=== PATIENT | male | born 1960 | race American Indian/Alaskan Native ===

== ENCOUNTER 2019-05-16 11:17 | Outpatient (CLI) | payer BC ==
[2019-05-16 11:54] LABS: Basophils # (Auto) 0.1 K/mm3 (0.0-0.1); Eosinophils # (Auto) 0.4 K/mm3 (0.0-0.4); Eosinophils % (Auto) 4.7 % (0.0-4.3); Hematocrit 42.1 % (35.5-45.6); Lymphocytes # (Auto) 3.9 K/mm3 (1.2-5.4); Lymphocytes % (Auto) 44.7 % (13.4-35.0); Mean Corpuscular Volume 88 fl (84-94); Monocytes # (Auto) 0.7 K/mm3 (0.0-0.8); Monocytes % (Auto) 7.7 % (0.0-7.3); Platelet Count 302 K/mm3 (140-440); Red Blood Count 4.79 M/mm3 (3.65-5.03)
[2019-05-16 12:07] LABS: Basophils % (Auto) 1.5 % (0.0-1.8)
[2019-05-16 12:08] LABS: Hemoglobin 14.3 gm/dl (11.8-15.2); Mean Corpuscular HGB Conc 34 % (32-34); Red Cell Distribution Width 13.7 % (13.2-15.2)
--- NOTE | 2019-05-16 12:14 | XRay Report ---
CHEST 1 VIEW INDICATION: HISTORY OF SMOKING 10-25 PACK YEARS. COMPARISON: None. FINDINGS: Heart: Within normal limits. Lungs: No acute air space or interstitial disease. Pleura: No significant pleural effusion. No pneumothorax. Additional findings: None. IMPRESSION: 1. No acute findings. Signer Name: Gabriel Yatse MD Signed: 05/16/2019 12:09 PM Workstation Name: [id number]
[2019-05-16 12:23] LABS: Alanine Aminotransferase 18 units/L (7-56); Albumin 4.2 g/dL (3.9-5); BUN/Creatinine Ratio 18; Blood Urea Nitrogen 14 mg/dL (9-20); Calcium 9.2 mg/dL (8.4-10.2); Chol/HDL Ratio 5.05 %; HDL Cholesterol 36 mg/dL (40-59); Hemolysis Index 2; LDL Cholesterol,Direct 146 mg/dL (50-130)
== END 2019-05-16 11:18 | disposition home or self-care (01) ==
LOC: XRAY 11:17 → EDSEX 11:17 → XRAY 11:18
PROVIDERS: ATTEND Family Medicine
DX: Z12.5 Encounter for screening for malignant neoplasm of prostate (principal); R73.03 Prediabetes; I10 Essential (primary) hypertension; E78.00 Pure hypercholesterolemia, unspecified; N52.9 Male erectile dysfunction, unspecified; Z87.891 Personal history of nicotine dependence
CPT/HCPCS: 36415; 71045; 80053; 80061; 84153; 84443; 85025

== ENCOUNTER 2019-06-25 08:18 | Outpatient (CLI) | payer BC ==
--- NOTE | 2019-06-25 09:48 | Ultrasound Report ---
ULTRASOUND RENAL INDICATION / CLINICAL INFORMATION: R94.4. Abnormal results of kidney function test, hypertension COMPARISON: None available. FINDINGS: RIGHT KIDNEY: Length = 10.5 cm. [normal > 9 cm] - Parenchymal Thickness = 0.7 cm. [normal > 1.5 cm] - Echogenicity: Normal. - Hydronephrosis: None. - Cyst or mass: No significant abnormality. - Stones: None seen. LEFT KIDNEY: Length = 10.4 cm. [normal > 9 cm] - Parenchymal Thickness = 1.8 cm. [normal > 1.5 cm] - Echogenicity: Normal. - Hydronephrosis: None. - Cyst or mass: No significant abnormality. - Stones: None seen. URINARY BLADDER: Prevoid bladder volume measures 154 cc. Post void residual measures 3 cc. FREE FLUID: None. ADDITIONAL FINDINGS: None. IMPRESSION: Normal renal ultrasound. Post void residual measures 3 cc. Signer Name: Speedy Gardner Jr, MD Signed: 06/25/2019 9:44 AM Workstation Name: [id number]
[2019-06-25 09:50] LABS: Hematocrit 43.9 % (35.5-45.6); Mean Corpuscular HGB Conc 34 % (32-34); Mean Corpuscular Volume 88 fl (84-94); Platelet Count 266 K/mm3 (140-440); Red Blood Count 5.02 M/mm3 (3.65-5.03); Red Cell Distribution Width 13.9 % (13.2-15.2)
[2019-06-25 10:15] LABS: Alanine Aminotransferase 19 units/L (7-56); Albumin 4.3 g/dL (3.9-5); BUN/Creatinine Ratio 16; Blood Urea Nitrogen 13 mg/dL (9-20); Calcium 9.5 mg/dL (8.4-10.2); Hemolysis Index 1
[2019-06-25 11:25] LABS: Creatinine,Urine 127.3 mg/dL (0.1-20.0); Protein/Creatinine Ratio,Urine 0.06
[2019-06-30 13:08] LABS: ANA Screen, IFA Negative (Negative)
[2019-07-01 12:47] LABS: Myeloperoxidase Antibody <1.0 AI (<1.0)
== END 2019-06-25 08:19 | disposition home or self-care (01) ==
LOC: US 08:18
PROVIDERS: ATTEND Internal Medicine
DX: R94.4 Abnormal results of kidney function studies (principal); E78.5 Hyperlipidemia, unspecified; I10 Essential (primary) hypertension; R31.21 Asymptomatic microscopic hematuria; G47.37 Central sleep apnea in conditions classified elsewhere
CPT/HCPCS: 36415; 76770; 76857; 80053; 82570; 84156; 85027; 86021; 86038; 86706; 86803; 89050

== ENCOUNTER 2019-08-13 11:00 | Outpatient (CLI) | payer BC | END 2019-08-13 11:01 | disposition home or self-care (01) | LOC: SLR 11:00 | PROVIDERS: ATTEND Internal Medicine Critical Care Medicine | DX: G47.33 Obstructive sleep apnea (adult) (pediatric) (principal); R40.0 Somnolence; R06.83 Snoring; E66.9 Obesity, unspecified | CPT/HCPCS: 95810 ==

== ENCOUNTER 2019-09-11 11:00 | Outpatient (CLI) | payer BC | END 2019-09-11 11:01 | disposition home or self-care (01) | LOC: SLR 11:00 | PROVIDERS: ATTEND Internal Medicine Critical Care Medicine | DX: G47.33 Obstructive sleep apnea (adult) (pediatric) (principal) | CPT/HCPCS: 95811 ==

== ENCOUNTER 2020-01-17 14:54 | Outpatient (CLI) | payer BC ==
[2020-01-17 15:12] LABS: Basophils # (Auto) 0.1 K/mm3 (0.0-0.1); Eosinophils # (Auto) 0.3 K/mm3 (0.0-0.4); Eosinophils % (Auto) 3.7 % (0.0-4.3); Hematocrit 45.9 % (35.5-45.6); Hemoglobin 15.5 gm/dl (11.8-15.2); Lymphocytes # (Auto) 2.9 K/mm3 (1.2-5.4); Lymphocytes % (Auto) 36.3 % (13.4-35.0); Mean Corpuscular HGB Conc 34 % (32-34); Mean Corpuscular Volume 88 fl (84-94); Monocytes # (Auto) 0.7 K/mm3 (0.0-0.8); Monocytes % (Auto) 8.5 % (0.0-7.3); Platelet Count 292 K/mm3 (140-440); Red Blood Count 5.23 M/mm3 (3.65-5.03); Red Cell Distribution Width 14.3 % (13.2-15.2)
[2020-01-17 15:26] LABS: Alanine Aminotransferase 19 units/L (7-56); Albumin 4.2 g/dL (3.9-5); BUN/Creatinine Ratio 19; Blood Urea Nitrogen 15 mg/dL (9-20); Calcium 9.4 mg/dL (8.4-10.2); Hemolysis Index 66
[2020-01-17 16:11] LABS: Creatinine,Urine 88.7 mg/dL (0.1-20.0); Protein/Creatinine Ratio,Urine 0.07
== END 2020-01-17 14:55 | disposition home or self-care (01) ==
LOC: LAB 14:54
PROVIDERS: ATTEND Internal Medicine
DX: R94.4 Abnormal results of kidney function studies (principal)
CPT/HCPCS: 36415; 80053; 82570; 84156; 85025

== ENCOUNTER 2020-09-01 12:40 | Outpatient (CLI) | payer BC ==
[2020-09-01 14:28] LABS: Alanine Aminotransferase 15 units/L (7-56); BUN/Creatinine Ratio 18; Blood Urea Nitrogen 14 mg/dL (9-20); Calcium 9.2 mg/dL (8.4-10.2); Hemolysis Index 3
[2020-09-02 16:03] LABS: Chol/HDL Ratio 5.87 %; HDL Cholesterol 31 mg/dL (40-59); LDL Cholesterol,Direct 135 mg/dL (50-130)
== END 2020-09-01 12:41 | disposition home or self-care (01) ==
LOC: LAB 12:40
DX: I10 Essential (primary) hypertension (principal); E53.8 Deficiency of other specified B group vitamins; E78.00 Pure hypercholesterolemia, unspecified; R73.03 Prediabetes
CPT/HCPCS: 36415; 80053; 80061; 82607; 83036

== ENCOUNTER 2020-11-03 08:57 | Outpatient (CLI) | payer BC ==
[2020-11-03 09:53] LABS: Basophils # (Auto) 0.1 K/mm3 (0.0-0.1); Eosinophils # (Auto) 0.4 K/mm3 (0.0-0.4); Eosinophils % (Auto) 5.4 % (0.0-4.3); Hematocrit 41.1 % (35.5-45.6); Hemoglobin 14.1 gm/dl (11.8-15.2); Lymphocytes # (Auto) 3.6 K/mm3 (1.2-5.4); Lymphocytes % (Auto) 43.5 % (13.4-35.0); Mean Corpuscular HGB Conc 34 % (32-34); Mean Corpuscular Volume 89 fl (84-94); Monocytes # (Auto) 0.7 K/mm3 (0.0-0.8); Monocytes % (Auto) 8.1 % (0.0-7.3); Platelet Count 291 K/mm3 (140-440); Red Blood Count 4.61 M/mm3 (3.65-5.03); Red Cell Distribution Width 14.1 % (13.2-15.2)
[2020-11-05 15:44] LABS: Vitamin D, 25-OH, D2 18 ng/mL
== END 2020-11-03 08:58 | disposition home or self-care (01) ==
LOC: LAB 08:57
PROVIDERS: ATTEND Family Medicine
DX: R53.83 Other fatigue (principal)
CPT/HCPCS: 36415; 82306; 84443; 85025

== ENCOUNTER 2021-01-14 07:19 | Outpatient (CLI) | payer BC ==
[2021-01-14 07:43] LABS: Hemoglobin 14.2 gm/dl (11.8-15.2); Mean Corpuscular HGB Conc 35 % (32-34); Mean Corpuscular Volume 89 fl (84-94); Platelet Count 307 K/mm3 (140-440); Red Blood Count 4.63 M/mm3 (3.65-5.03); Red Cell Distribution Width 13.5 % (13.2-15.2)
[2021-01-14 08:01] LABS: Alanine Aminotransferase 21 units/L (7-56); BUN/Creatinine Ratio 16; Blood Urea Nitrogen 13 mg/dL (9-20); Calcium 9.1 mg/dL (8.4-10.2); Hemolysis Index 4
[2021-01-14 15:26] LABS: Creatinine,Urine 165.5 mg/dL (0.1-20.0); Protein/Creatinine Ratio,Urine 0.05
== END 2021-01-14 07:20 | disposition home or self-care (01) ==
LOC: LAB 07:19
PROVIDERS: ATTEND Internal Medicine
DX: E78.5 Hyperlipidemia, unspecified (principal); R94.4 Abnormal results of kidney function studies; I10 Essential (primary) hypertension; G47.37 Central sleep apnea in conditions classified elsewhere; R31.21 Asymptomatic microscopic hematuria
CPT/HCPCS: 36415; 80053; 82570; 84156; 85027

== ENCOUNTER 2021-04-24 10:05 | Outpatient (CLI) | payer BC ==
[2021-04-24 10:32] LABS: Basophils # (Auto) 0.1 K/mm3 (0.0-0.1); Basophils % (Auto) 1.1 % (0.0-1.8); Eosinophils # (Auto) 0.4 K/mm3 (0.0-0.4); Eosinophils % (Auto) 4.7 % (0.0-4.3); Hemoglobin 15.2 gm/dl (11.8-15.2); Lymphocytes # (Auto) 3.3 K/mm3 (1.2-5.4); Lymphocytes % (Auto) 38.3 % (13.4-35.0)
[2021-04-24 10:43] LABS: Creatinine,Urine 170.1 mg/dL (0.1-20.0); Protein/Creatinine Ratio,Urine 0.08
[2021-04-24 10:51] LABS: Albumin 4.6 g/dL (3.9-5); BUN/Creatinine Ratio 21; Blood Urea Nitrogen 17 mg/dL (9-20); Calcium 9.4 mg/dL (8.4-10.2); Hemolysis Index 1
[2021-04-24 11:12] LABS: Alanine Aminotransferase < 5 units/L (7-56)
[2021-04-24 11:18] LABS: Hematocrit 45.2 % (35.5-45.6); Mean Corpuscular HGB Conc 34 % (32-34); Mean Corpuscular Volume 89 fl (84-94); Platelet Count 305 K/mm3 (140-440); Red Blood Count 5.09 M/mm3 (3.65-5.03); Red Cell Distribution Width 14.3 % (13.2-15.2)
== END 2021-04-24 10:06 | disposition home or self-care (01) ==
LOC: LAB 10:05
PROVIDERS: ATTEND Internal Medicine
DX: E78.5 Hyperlipidemia, unspecified (principal); I10 Essential (primary) hypertension; R94.4 Abnormal results of kidney function studies; G47.37 Central sleep apnea in conditions classified elsewhere; R31.21 Asymptomatic microscopic hematuria
CPT/HCPCS: 36415; 80053; 82570; 84156; 85025

== ENCOUNTER 2021-08-10 10:24 | Outpatient (CLI) | payer BC ==
[2021-08-10 11:06] LABS: Bilirubin,Urine NEG (Negative); Blood,Urine SM (Negative); Color,Urine Yellow (Yellow); Mucus,Urine FEW /HPF; Protein,Urine <15 mg/dL mg/dL (Negative); Urobilinogen,Urine < 2.0 mg/dL (<2.0); WBC,Urine < 1.0 /HPF (0.0-6.0)
[2021-08-10 11:21] LABS: Basophils # (Auto) 0.1 K/mm3 (0.0-0.1); Basophils % (Auto) 1.2 % (0.0-1.8); Eosinophils # (Auto) 0.4 K/mm3 (0.0-0.4); Hematocrit 42.9 % (35.5-45.6); Hemoglobin 14.4 gm/dl (11.8-15.2); Lymphocytes # (Auto) 2.6 K/mm3 (1.2-5.4); Lymphocytes % (Auto) 35.5 % (13.4-35.0); Mean Corpuscular HGB Conc 33 % (32-34); Mean Corpuscular Volume 89 fl (84-94); Monocytes # (Auto) 0.7 K/mm3 (0.0-0.8); Platelet Count 285 K/mm3 (140-440); Red Blood Count 4.84 M/mm3 (3.65-5.03); Red Cell Distribution Width 14.1 % (13.2-15.2)
[2021-08-10 11:42] LABS: Alanine Aminotransferase 16 units/L (7-56); Albumin 4.2 g/dL (3.9-5); BUN/Creatinine Ratio 19; Blood Urea Nitrogen 15 mg/dL (9-20); Calcium 9.4 mg/dL (8.4-10.2); Chol/HDL Ratio 5.94 %; HDL Cholesterol 34 mg/dL (40-59); Hemolysis Index 14; LDL Cholesterol,Direct 155 mg/dL (50-130)
[2021-08-10 13:35] LABS: Creatinine,Urine 147.9 mg/dL (0.1-20.0)
[2021-08-10 13:41] LABS: Microalbumin/Creatinine Ratio 11.4 ug/mg
== END 2021-08-10 10:25 | disposition home or self-care (01) ==
LOC: LAB 10:24
DX: E78.2 Mixed hyperlipidemia (principal); R68.82 Decreased libido; I10 Essential (primary) hypertension; R73.02 Impaired glucose tolerance (oral)
CPT/HCPCS: 36415; 80053; 80061; 81001; 82043; 82550; 84146; 84402; 84439; 84443; 85025

== ENCOUNTER 2021-08-11 10:26 | Outpatient (CLI) | payer BC ==
--- NOTE | 2021-08-11 12:17 | Cat Scan Report ---
CT CHEST WITHOUT CONTRAST, LOW-DOSE SCREENING INDICATION / CLINICAL INFORMATION: LUNG CANCER SCREENING. TECHNIQUE Thin section axial imaging performed from the lung apices through the costophrenic sulci using low-do se technique. All CT scans at this location are performed using CT dose reduction for ALARA by means of automated exposure control. COMPARISON: Radiograph 05/16/2019. FINDINGS: No evidence of discrete pulmonary nodule or mass. Subtle areas of groundglass opacities are noted wit hin the lung bases bilaterally. The appearance may reflect some degree of infectious or inflammatory change. No focal consolidation. Mild paraseptal emphysematous change. Mildly enlarged mediastinal lymph nodes including a 1.6 x 1.1 cm right paratracheal lymph node (axial image 31 of 21. The heart is within the upper limits of normal in terms of size without pericardial effusion. No evid ence of axillary lymphadenopathy. Limited evaluation of the upper abdomen is unremarkable. Bones show no evidence of acute fracture or aggressive osseous destructive lesion. IMPRESSION: 1. No evidence of discrete pulmonary nodule or mass. 2. Lung-RADS Category 1: NEGATIVE 3. Mildly enlarged mediastinal lymph nodes are present. This is a nonspecific finding, but may reflec t some degree of an infectious or inflammatory change as there are subtle ground glass opacities in t he lung bases bilaterally. Consider short interval follow-up CT in 3-4 months. Lung-RADS Version 1.1 Assessment Categories (2019) CATEGORY 0: INCOMPLETE - Incomplete exam or Prior chest CT examination(s) being located for comparison - Recommendation: Additional lung cancer screening CT images and/or comparison to prior chest CT exa minations is needed CATEGORY 1: NEGATIVE - No lung nodules OR benign nodules - Recommendation: Continue annual low dose CT (LDCT) screening in 12 months. CATEGORY 2: BENIGN APPEARANCE OR BEHAVIOR - PERIFISSURAL nodule: < 10.0 mm - SOLID nodule: Prior nodule < 6.0 mm or New nodule < 4.0 mm - PARTIALLY SOLID nodule: < 6.0 mm - NONSOLID nodule: < 30 mm or > 30 mm and unchanged or slow growth (< 1.5 mm since last exam) - CATEGORY 3 or 4 nodules unchanged for >= 3 months - Recommendation: Continue annual LDCT screening in 12 months. CATEGORY 3: PROBABLY BENIGN - SOLID nodule: 6.0-7.9 mm at Baseline OR New solid nodule between 4.0-5.9 mm. - PARTIALLY SOLID nodule: >= 6.0 mm with solid component < 6.0 mm OR new < 6.0 mm total diameter - NONSOLID nodule: >= [address] or new - Recommendation: Follow-up LDCT in 6 months. CATEGORY 4A: SUSPICIOUS - SOLID nodule: 8.0-14.9 mm OR Growing < 8.0 mm OR New 6-7.9 mm. - PARTIALLY SOLID nodule: >= 6.0 mm with solid component 6.0-7.9 mm OR New/Growing solid component < 4.0 mm - ENDOBRONCHIAL nodule - Recommendation: Follow-up with LDCT in 3 months; or, PET/CT may be used if there is a solid compon ent to the nodule measuring 8.0 mm or larger. CATEGORY 4B: VERY SUSPICIOUS - Prior SOLID nodule: >= 15.0 mm OR New/Growing component and >= 8.0 mm - PARTIALLY SOLID nodule: solid component >= 8.0 mm OR New/Growing solid component >= 4.0 mm - Recommendation: Follow-up with CT chest with contrast, PET/CT, and or tissue sampling depending on comorbidities and probability of malignancy as determined by the referring clinician. PET/CT may be used when there is a solid component of at least 8.0 mm. For new large nodules that develop on an an nual repeat screening CT, a 1 month LDCT may be recommended to address potentially infectious or infl ammatory conditions. CATEGORY 4X: VERY SUSPICIOUS - CATEGORY 3 or 4 nodules with additional features or imaging findings that increases the suspicion of malignancy. - Recommendation: Follow-up with CT chest with contrast, PET/CT, and or tissue sampling depending on comorbidities and probability of malignancy as determined by the referring clinician. PET/CT may be used when there is a solid component of at least 8.0 mm. For new large nodules that develop on an an nual repeat screening CT, a 1 month LDCT may be recommended to address potentially infectious or infl ammatory conditions. Signer Name: Keith Escoto MD Signed: 08/11/2021 12:12 PM Workstation Name: [id number]
== END 2021-08-11 10:27 | disposition home or self-care (01) ==
LOC: CT 10:26
PROVIDERS: ATTEND Internal Medicine Critical Care Medicine
DX: J43.9 Emphysema, unspecified (principal); Z72.0 Tobacco use; Z87.891 Personal history of nicotine dependence
CPT/HCPCS: 71250

== ENCOUNTER 2021-08-19 08:59 | Outpatient (CLI) | payer BC | END 2021-08-19 09:00 | disposition home or self-care (01) | LOC: PF 08:59 | PROVIDERS: ATTEND Internal Medicine Critical Care Medicine | DX: R06.00 Dyspnea, unspecified (principal); J45.909 Unspecified asthma, uncomplicated; Z72.0 Tobacco use | CPT/HCPCS: 94010; 94726; 94729 ==

== ENCOUNTER 2021-10-12 10:12 | Outpatient (CLI) | payer BC ==
[2021-10-12 11:01] LABS: Basophils # (Auto) 0.1 K/mm3 (0.0-0.1); Basophils % (Auto) 1.4 % (0.0-1.8); Eosinophils # (Auto) 0.5 K/mm3 (0.0-0.4); Eosinophils % (Auto) 5.4 % (0.0-4.3); Hematocrit 44.1 % (35.5-45.6); Hemoglobin 14.5 gm/dl (11.8-15.2); Lymphocytes # (Auto) 3.7 K/mm3 (1.2-5.4); Lymphocytes % (Auto) 39.7 % (13.4-35.0); Mean Corpuscular HGB Conc 33 % (32-34); Mean Corpuscular Volume 88 fl (84-94); Monocytes # (Auto) 0.9 K/mm3 (0.0-0.8); Monocytes % (Auto) 9.5 % (0.0-7.3); Platelet Count 301 K/mm3 (140-440); Red Cell Distribution Width 13.8 % (13.2-15.2)
[2021-10-12 11:02] LABS: Bilirubin,Urine NEG (Negative); Blood,Urine NEG (Negative); Color,Urine Yellow (Yellow); Protein,Urine <15 mg/dL mg/dL (Negative); Urobilinogen,Urine < 2.0 mg/dL (<2.0)
[2021-10-12 11:07] LABS: WBC,Urine < 1.0 /HPF (0.0-6.0)
[2021-10-12 11:26] LABS: Alanine Aminotransferase 18 units/L (7-56); Albumin 4.3 g/dL (3.9-5); BUN/Creatinine Ratio 16; Blood Urea Nitrogen 14 mg/dL (9-20); Calcium 9.3 mg/dL (8.4-10.2); HDL Cholesterol 34 mg/dL (40-59); Hemolysis Index 4; LDL Cholesterol,Direct 141 mg/dL (50-130)
== END 2021-10-12 10:13 | disposition home or self-care (01) ==
LOC: LAB 10:12
PROVIDERS: ATTEND Internal Medicine Critical Care Medicine
DX: E78.2 Mixed hyperlipidemia (principal); R68.82 Decreased libido; I10 Essential (primary) hypertension; R73.02 Impaired glucose tolerance (oral)
CPT/HCPCS: 36415; 80053; 80061; 81001; 82550; 84402; 85025

== ENCOUNTER 2021-11-23 09:47 | Outpatient (CLI) | payer BC ==
[2021-11-23 10:33] LABS: Hematocrit 41.3 % (35.5-45.6); Hemoglobin 13.7 gm/dl (11.8-15.2); Mean Corpuscular HGB Conc 33 % (32-34); Mean Corpuscular Volume 88 fl (84-94); Platelet Count 283 K/mm3 (140-440); Red Blood Count 4.71 M/mm3 (3.65-5.03); Red Cell Distribution Width 14.1 % (13.2-15.2)
[2021-11-23 11:14] LABS: Alanine Aminotransferase 17 units/L (7-56); Albumin 4.1 g/dL (3.9-5); BUN/Creatinine Ratio 18; Blood Urea Nitrogen 16 mg/dL (9-20); Calcium 9.2 mg/dL (8.4-10.2); Chol/HDL Ratio 5.84 %; HDL Cholesterol 33 mg/dL (40-59); Hemolysis Index 4; LDL Cholesterol,Direct 139 mg/dL (50-130)
[2021-11-26 14:24] LABS: Vitamin D, 25-OH, D2 7 ng/mL
== END 2021-11-23 09:48 | disposition home or self-care (01) ==
LOC: LAB 09:47
DX: Z00.00 Encounter for general adult medical examination without abnormal findings (principal)
CPT/HCPCS: 36415; 80053; 80061; 82306; 83036; 84153; 84443; 85027

== ENCOUNTER 2022-01-13 08:22 | Outpatient (CLI) | payer BC ==
[2022-01-13 09:13] LABS: Blood Urea Nitrogen 17 mg/dL (9-20)
--- NOTE | 2022-01-13 10:47 | Cat Scan Report ---
CT CHEST WITH CONTRAST INDICATION / CLINICAL INFORMATION: R59.0 Generalized enlarged lymph nodes 100 ml omni 300 . TECHNIQUE: Axial CT images were obtained through the chest after IV contrast. All CT scans at this [facility] are performed using CT dose reduction for ALARA by means of automated exposure control. COMPARISON: CT 08/11/2021 FINDINGS: HEART: No significant abnormality. CORONARY ARTERY CALCIFICATION: Multivessel THORACIC AORTA: No significant abnormality. MEDIASTINUM / TRACY: There are couple of mildly prominent paratracheal lymph nodes which are similar i n size and distribution compared to reference exam from July 2021. Largest of these is noted wit hin the lower right paratracheal region measuring approximately 1.1 cm short axis dimension (this pre viously measured 1.1 cm in July 2021). PLEURA: No pleural effusion. No pneumothorax. LUNGS: No acute air space or interstitial disease. ADDITIONAL FINDINGS: None. UPPER ABDOMEN: No significant abnormality. SKELETAL SYSTEM: No significant abnormality. IMPRESSION: 1. No acute abnormality. 2. Mildly prominent paratracheal lymph nodes, unchanged in size compared to reference from July 2021. These findings are again favored to be reactive in etiology. Further follow-up of these lymph nodes can be performed on an annual low dose lung screening exam, due in July 2022. Signer Name: Ibrahima Mustafa MD Signed: 01/13/2022 10:42 AM Workstation Name: [id number]
== END 2022-01-13 08:23 | disposition home or self-care (01) ==
LOC: CT 08:22
PROVIDERS: ATTEND Internal Medicine Critical Care Medicine
DX: R59.0 Localized enlarged lymph nodes (principal)
CPT/HCPCS: 36415; 71260; 82565; 84520; Q9967

== ENCOUNTER 2022-02-08 09:56 | Outpatient (CLI) | payer BC ==
[2022-02-08 10:41] LABS: Alanine Aminotransferase 17 units/L (7-56); Albumin 4.2 g/dL (3.9-5); BUN/Creatinine Ratio 13; Blood Urea Nitrogen 10 mg/dL (9-20); Hemolysis Index 5
[2022-02-08 10:50] LABS: Creatinine,Urine 64.8 mg/dL (0.1-20.0); Protein/Creatinine Ratio,Urine 0.08
[2022-02-08 11:09] LABS: Hematocrit 44.9 % (35.5-45.6); Hemoglobin 14.8 gm/dl (11.8-15.2); Mean Corpuscular HGB Conc 33 % (32-34); Mean Corpuscular Volume 89 fl (84-94); Platelet Count 294 K/mm3 (140-440); Red Blood Count 5.05 M/mm3 (3.65-5.03)
== END 2022-02-08 09:57 | disposition home or self-care (01) ==
LOC: LAB 09:56
PROVIDERS: ATTEND Internal Medicine
DX: R94.4 Abnormal results of kidney function studies (principal)
CPT/HCPCS: 36415; 80053; 82570; 84156; 85027

== ENCOUNTER 2022-03-30 10:42 | Outpatient (CLI) | payer BC ==
[2022-03-30 11:15] LABS: Basophils # (Auto) 0.1 K/mm3 (0.0-0.1); Eosinophils # (Auto) 0.3 K/mm3 (0.0-0.4); Eosinophils % (Auto) 3.7 % (0.0-4.3); Hematocrit 45.7 % (35.5-45.6); Hemoglobin 15.3 gm/dl (11.8-15.2); Lymphocytes # (Auto) 2.7 K/mm3 (1.2-5.4); Lymphocytes % (Auto) 32.7 % (13.4-35.0); Mean Corpuscular HGB Conc 33 % (32-34); Mean Corpuscular Volume 89 fl (84-94); Monocytes # (Auto) 0.7 K/mm3 (0.0-0.8); Monocytes % (Auto) 8.1 % (0.0-7.3); Platelet Count 274 K/mm3 (140-440); Red Blood Count 5.15 M/mm3 (3.65-5.03); Red Cell Distribution Width 14.5 % (13.2-15.2)
[2022-03-30 11:34] LABS: Bilirubin,Urine NEG (Negative); Blood,Urine SM (Negative); Color,Urine Yellow (Yellow); Mucus,Urine FEW /HPF; Protein,Urine <15 mg/dL mg/dL (Negative); Urobilinogen,Urine < 2.0 mg/dL (<2.0); WBC,Urine < 1.0 /HPF (0.0-6.0)
[2022-03-30 11:38] LABS: Alanine Aminotransferase 19 units/L (7-56); Albumin 4.3 g/dL (3.9-5); BUN/Creatinine Ratio 14; Blood Urea Nitrogen 14 mg/dL (9-20); Calcium 9.2 mg/dL (8.4-10.2); Chol/HDL Ratio 3.97 %; HDL Cholesterol 48 mg/dL (40-59); Hemolysis Index 4; LDL Cholesterol,Direct 133 mg/dL (50-130)
== END 2022-03-30 10:43 | disposition home or self-care (01) ==
LOC: LAB 10:42
DX: I10 Essential (primary) hypertension (principal); E78.2 Mixed hyperlipidemia; R73.02 Impaired glucose tolerance (oral); R68.82 Decreased libido
CPT/HCPCS: 36415; 80053; 80061; 81001; 84403; 85025

== ENCOUNTER 2022-06-29 09:52 | Outpatient (CLI) | payer BC ==
[2022-06-29 10:23] LABS: Hematocrit 41.6 % (35.5-45.6); Hemoglobin 14.2 gm/dl (11.8-15.2); Mean Corpuscular HGB Conc 34 % (32-34); Mean Corpuscular Volume 90 fl (84-94); Platelet Count 262 K/mm3 (140-440); Red Cell Distribution Width 13.9 % (13.2-15.2)
[2022-06-29 10:53] LABS: Alanine Aminotransferase 19 units/L (7-56); Albumin 4.2 g/dL (3.9-5); BUN/Creatinine Ratio 11; Blood Urea Nitrogen 10 mg/dL (9-20); Hemolysis Index 3
[2022-06-30 08:30] LABS: Creatinine,Urine 46.4 mg/dL (0.1-20.0); Protein/Creatinine Ratio,Urine 0.09
== END 2022-06-29 09:53 | disposition home or self-care (01) ==
LOC: LAB 09:52
PROVIDERS: ATTEND Internal Medicine
DX: E78.5 Hyperlipidemia, unspecified (principal); R94.4 Abnormal results of kidney function studies; I10 Essential (primary) hypertension; G47.37 Central sleep apnea in conditions classified elsewhere; R31.21 Asymptomatic microscopic hematuria
CPT/HCPCS: 36415; 80053; 82570; 84156; 85027